=== PATIENT | male | born 1970 | race Caucasian/White ===

== ENCOUNTER 2018-11-11 18:48 | Emergency (ER) | payer MEDICAID ==
[~2018-11-11] VITALS: Ht 170.2 cm; Wt 81.6 kg
[2018-11-11 19:03] VITALS: BP 154/95
[2018-11-11] MEDS ORDERED: FLUORESCEIN SODIUM OPHTH 1 EA STRIP ONE (19:23)
[2018-11-11] MEDS ORDERED: TETRACAINE HCL/PF 0.5% UD 2 ML BOTTLE ONE (19:24)
[2018-11-11] MEDS: FLUORESCEIN SODIUM OPHTH 1 EA STRIP OP ONE (19:25)
[2018-11-11] MEDS: TETRACAINE HCL/PF 0.5% UD 2 ML BOTTLE OP ONE (19:25)
[2018-11-11] MEDS ORDERED: SOD BORATE/BORIC AC/H2O/NACL 118 ML BOTTLE ONE (19:26)
[2018-11-11] MEDS: SOD BORATE/BORIC AC/H2O/NACL 118 ML BOTTLE OP ONE (19:30)
== END 2018-11-11 19:34 | disposition home or self-care (01) ==
LOC: ER 18:48
DX: H16.133 Photokeratitis, bilateral (principal)